=== PATIENT | female | born 1975 | race Caucasian/White ===

== ENCOUNTER 2019-10-30 14:27 | Emergency (ER) | payer MEDICAID ==
[~2019-10-30] VITALS: Ht 165.1 cm; Wt 99.4 kg
[2019-10-30 14:44] VITALS: BP 154/105
[2019-10-30] MEDS ORDERED: LORazepam 1 MG tablet PO ONE (15:30)
[2019-10-30] MEDS ORDERED: HYDR-3686 PO (15:33)
[2019-10-30] MEDS ORDERED: ONDA4TAB6 PO (15:33)
[2019-10-30] MEDS ORDERED: CLON-529 PO (15:33)
--- NOTE | 2019-10-30 15:55 | NUR ---
provider evaluated pt before RN could do assessment
== END 2019-10-30 15:56 | disposition home or self-care (01) ==
LOC: ER 14:27
DX: F10.239 Alcohol dependence with withdrawal, unspecified (principal); R00.0 Tachycardia, unspecified; F17.200 Nicotine dependence, unspecified, uncomplicated; Z79.899 Other long term (current) drug therapy; Y90.9 Presence of alcohol in blood, level not specified
CPT/HCPCS: 99283

== ENCOUNTER 2023-04-01 13:37 | Emergency (ER) | payer MEDICAID ==
[~2023-04-01] VITALS: Ht 162.6 cm; Wt 82.6 kg
[~2023-04-01 13:37] MED LIST: CLON-529 PO; ONDA4TAB6 PO
[2023-04-01 14:07] VITALS: BP 122/85; PULSE 125; RESP 19; TEMP 98.5; O2SAT 97
[2023-04-01 14:56] LABS: COVID19 ID NOW NEGATIVE (Neg)
[2023-04-01] MEDS ORDERED: ibuprofen 200mg tablet PO ONE (16:15)
[2023-04-01] MEDS: ibuprofen tablet 400 MG TABLET PO ONE (16:36)
== END 2023-04-01 16:38 | disposition home or self-care (01) ==
LOC: ER 13:38
DX: B34.9 Viral infection, unspecified (principal); Z20.822 Contact with and (suspected) exposure to COVID-19
CPT/HCPCS: 71045; 87502; 87503; 87635; 99284

== ENCOUNTER 2025-01-27 16:26 | Emergency (ER) | payer MEDICAID ==
[~2025-01-27] VITALS: Ht 165.1 cm; Wt 80.0 kg
[2025-01-27 16:35] VITALS: BP 159/101; PULSE 116; RESP 20; TEMP 97.7; O2SAT 99
--- NOTE | 2025-01-27 16:59 | Physician Documentation ---
History of Present Illness ~ Chief Complaint: Cough Stated Complaint: MULTIPLE MEDICAL ISSUES Time Seen by MD: 16:35 HPI 49-year-old female with chief complaint right-sided chest wall pain which started today. She states It feels like when I had pleurisy but a little diffe rent because it is not really related to when I take deep breaths but is worse with pressure to area. She states I mostly wanted to make sure that I was okay because I am visiting my mom here in the hospital who is immunocompromised. She does have a cough has states that is her baseline cough related to her COPD. Cough is productive which is her chronic cough. She denies abdominal pain. She denies fever, chills, body aches. Medication Reconciliation Allergies: Coded Allergies: No Known Allergies (Unverified , 01/27/25) Scheduled Clonidine Hcl* (Catapres*), 0.1 MG PO TID Ondansetron Hcl (Zofran), 1 TAB PO Q12H PRN Past Medical History Past Medical History: No Pertinent History Past Surgical History: noncontributory Alcohol Use: Alcoholic Drug Use: none Lives In: Home Review of Systems All Other Systems at this time: Reviewed and Negative ROS As stated above in the HPI, otherwise all systems are reviewed and negative. Physical Exam Vital Signs: Temperature: 97.7, Source: Temporal, Heart Rate: 116, Respiratory Rate: 20, BP: 159/101, Pulse Oximetry: 99, Weight: 80.000 Oxygen Flow Rate: 0 Physical Exam General Appearance: Alert, WD/WN. NAD. HEENT: NCAT, PERRL, EOMI. Neck: Supple, trachea midline. Cardiovascular: RRR. No m/r/g. Chest wall: Tenderness over right lateral anterior chest wall. Lungs: CTAB. Breathing unlabored Abdomen: Soft, nondistended nontender Extremities: Normal inspection. No edema. Skin: Warm/dry, normal color Neurological: Alert and oriented x4, normal gait. Psychiatric: Affect congruent with mood. Progress Progress Note DI CHEST,TWO VIEWS INDICATION: productive cough TECHNIQUE: Two views of the chest COMPARISON: DI CHEST,SINGLE VIEW on DOS: 04/01/23 FINDINGS/IMPRESSION: LUNGS: No pleural effusion, consolidation, or pneumothorax. Peribronchial thickening, which is nonspecific however may represent infectious versus inflammatory bronchitis. MEDIASTINUM: Unremarkable. BONES: No acute osseous abnormality. OTHER: None. Results/Orders Reviewed/noted all lab results: Yes Results/Orders Orders - CINDI SERRANO Chest,Two Views (01/27/25 16:40) Culture Blood (01/27/25 16:40) Saline Lock (01/27/25 16:40) Oxygen (01/27/25 16:40) Completed Orders - CINDI SERRANO Chest,Two Views (01/27/25 16:40) Cbc/Diff (01/27/25 16:40) BMP (01/27/25 16:40) PBNP (01/27/25 16:40) Lacticsepsis (01/27/25 16:40) Vital Signs 01/27/25 16:35 Temp 97.7 Pulse 116 Resp 20 B/P (MAP) 159/101 Pulse Ox 99 O2 Flow Rate 0 Laboratory Tests Test 01/27/25 16:48 White Blood Count 10.0 Red Blood Count 4.47 Hemoglobin 14.3 Hematocrit 41.3 Mean Corpuscular Volume 92.2 Mean Corpuscular Hemoglobin 32.0 H Mean Corpuscular Hemoglobin Concent 34.7 Red Cell Distribution Width 14.9 H Platelet Count 516 H Mean Platelet Volume 6.9 L Neutrophils (%) (Auto) 51.8 Lymphocytes (%) (Auto) 39.3 Monocytes (%) (Auto) 6.9 Eosinophils (%) (Auto) 1.0 Basophils (%) (Auto) 1.0 Neutrophils # (Auto) 5.2 Lymphocytes # (Auto) 3.9 Monocytes # (Auto) 0.7 Eosinophils # (Auto) 0.1 Basophils # (Auto) 0.1 CBC Comment Sodium Level 142 Potassium Level 3.7 Chloride Level 101 Carbon Dioxide Level 34.7 H Anion Gap 6 L Blood Urea Nitrogen 9 Creatinine 0.59 Estimated GFR/1.73 m2 > 90 BUN/Creatinine Ratio 15.3 Glucose Level 145 H Lactic Acid Level 1.8 Calcium Level 9.1 Pro-B-Type Natriuretic Peptide 345 H Albumin 3.2 L Chemistry Comments Medical Decision Making Additional information obtaine: N/A Findings MSE performed in triage and patient returned to ED lobby by nursing staff to await available ED room Differential Dx:Considerations: Include: Allergic rhinitis, Influenza, Otitis media, Peritonsillar abscess, Pharyngitis-Diphtheria, Pharyngitis-Streptoccal, Pharyngitis-Viral, Pneumonia, Pnuemonitis, Sinusitis, URI Departure Time of Disposition: 18:36 Disposition: 01 HOME / SELF CARE / HOMELESS Impression: Primary Impression: Chest wall pain Additional Impression: COPD (chronic obstructive pulmonary disease) Qualified Codes: J42 - Unspecified chronic bronchitis Condition: Stable Discharge Instructions: Chest Wall Pain, [id number] Additional Instructions: Labs chest x-ray normal patient's symptoms are reproducible on exam her symptoms are not consistent with pleurisy. Patient states she drove 6 hours to get here to visit her mom and she did not want to wait for her discharge papers so she left prior to discharge papers we discussed importance of returning if she were to develop any worsening of symptoms. Referrals: NO PRIMARY CARE PROVIDER (PCP) Education Educated: Patient Educated regarding: diagnosis, treatment, need for follow up Signature Scribe Signature: x Attestation: EVANGELINA Patrick Jan 27, 2025 16:59 CINDI SERRANO Jan 27, 2025 18:40
[2025-01-27 17:11] LABS: MEAN PLATELET VOLUME 6.9 FL (7.4-10.4); RED CELL DISTRIBUTION WIDTH 14.9 % (11.5-14.5)
[2025-01-27 17:31] LABS: CREATININE 0.59 MG/DL (0.40-0.90); PRO BRAIN NATRIURETIC PEPTIDE 345 PG/ML (0-125); TOTAL CARBON DIOXIDE 34.7 MMOL/L (24-32); eCRCL 103 ML/MIN; eGFR > 90 ML/MIN
== END 2025-01-27 18:25 | disposition home or self-care (01) ==
LOC: ER 16:27
DX: R07.89 Other chest pain (principal); J44.9 Chronic obstructive pulmonary disease, unspecified; F10.90 Alcohol use, unspecified, uncomplicated; Z79.899 Other long term (current) drug therapy; Y90.9 Presence of alcohol in blood, level not specified
CPT/HCPCS: 36415; 71046; 80048; 83605; 83880; 85025; 87040; 99284